=== PATIENT | female | born 1960 | race Caucasian/White ===

== ENCOUNTER → 2017-06-16 | Outpatient (CLI) | payer BC ==
--- NOTE | 2017-06-19 11:20 | KCIC ---
DATE: 06/19/2017. EXAM: MAMMO ALEC SCREENING BILATERAL. HISTORY: Routine mammographic screening. COMPARISON: 06/13/2014. This study was interpreted with the benefit of Computerized Aided Detection (CAD). FINDINGS: The breast parenchyma shows scattered fibroglandular densities. Breast parenchyma level B.. There is a new nodule laterally on the left at the nipple line. This suggests an intraparenchymal lymph node. Elsewhere on the left, a nodular focus of parenchyma medially has stable correlates. There is no suspicious finding on the right. BI-RADS CATEGORY: 0 INCOMPLETE: NEEDS ADDITIONAL IMAGING EVALUATION AND/OR PRIOR MAMMOGRAMS FOR COMPARISON.. RECOMMENDED FOLLOW-UP: ADD ADDITIONAL IMAGING. Spot compression and ultrasound of the new nodule laterally on the left. PQRS compliance statement: Patient information was entered into a reminder system with a target due date (now) for the next mammogram. Mammography is a sensitive method for finding small breast cancers, but it does not detect them all and is not a substitute for careful clinical examination. A negative mammogram does not negate a clinically suspicious finding and should not result in delay in biopsying a clinically suspicious abnormality. "Our facility is accredited by the [employer] Mammography [employer]."
== END | disposition home or self-care (01) ==
LOC: KCIC MAMMO 15:31
PROVIDERS: ATTEND Family Medicine
DX: Z12.31 Encounter for screening mammogram for malignant neoplasm of breast (principal)
CPT/HCPCS: 77063; G0202; 77067

== ENCOUNTER → 2017-06-30 | Outpatient (CLI) | payer BC ==
--- NOTE | 2017-06-30 09:21 | KCIC ---
DATE: 06/30/2017 EXAM: DIGITAL DIAGNOSTIC LT HISTORY: Callback for abnormality seen on most recent screening mammogram. COMPARISON: Screening Mammogram from 2016 and 2013 This study was interpreted with the benefit of Computerized Aided Detection (CAD). Spot compression CC and MLO views of the left breast were performed. FINDINGS: Breast Density: SCATTERED The breast parenchyma shows scattered fibroglandular densities. Breast parenchyma level B. There is a persistent 4.5 mm nodular density in the left breast approximately 3:00 position that corresponds to previously seen abnormality on the screening mammogram. No suspicious calcifications or architectural distortion associated with this nodule. IMPRESSION: Persistent nodular density in the left outer breast at 3:00 position as described above. Please see separate report on ultrasound done on the same day. BI-RADS CATEGORY: 4 SUSPICIOUS ABNORMALITY-BIOPSY SHOULD BE CONSIDERED RECOMMENDED FOLLOW-UP: BIO BIOPSY RECOMMENDED. PQRS compliance statement: Patient information was entered into a reminder system with a target due date for the next mammogram. Mammography is a sensitive method for finding small breast cancers, but it does not detect them all and is not a substitute for careful clinical examination. A negative mammogram does not negate a clinically suspicious finding and should not result in delay in biopsying a clinically suspicious abnormality. "Our facility is accredited by the [employer] Mammography Program."
--- NOTE | 2017-06-30 09:28 | KCIC ---
Ultrasound left breast Indication: Abnormal screening and diagnostic mammogram. Technique: Grayscale and color Doppler ultrasound images of the left breast obtained Comparison: Same day diagnostic mammogram Findings: There is a 0.7 x 0.4 x 0.5 cm irregular shaped complex solid and cystic lesion in the left breast at 3:00 position approximately 4 cm from the nipple with angular margins and no posterior features. This lesion is wider than taller. There is suggestion of internal vascularity. No calcifications are associated with this lesion. There is no surrounding architectural distortion. Impression: Left breast lesion as described above suggests complex solid and cystic lesion. BI-RADS 4A: Low suspicion for malignancy. US guided biopsy recommended.
== END | disposition home or self-care (01) ==
LOC: KCIC MAMMO 07:45
PROVIDERS: ATTEND Family Medicine
DX: N63.20 Unspecified lump in the left breast, unspecified quadrant (principal); R92.2 Inconclusive mammogram
CPT/HCPCS: 76641; G0206; 77065